=== PATIENT | male | born 1995 | race Caucasian/White ===

== ENCOUNTER 2024-11-04 07:46 | Outpatient (OUT) | payer OTHER, SELFPAY ==
--- NOTE | 2024-11-04 08:04 | ECG_ITS ---
[facility] Test Date: 2024-11-04 Pat Name: JESSICA FAGAN Department: Room: - Gender: Male Wound Care Technician: : 1995 Requested By: CHERYL VINCENT Order Number: [id number] Rajat MD: BETY STARKS M.D. Measurements Intervals Gage Rate: 72 P: 43 MI: 123 QRS: 34 QRSD: 89 T: 44 QT: 355 QTc: 388 Interpretive Statements SINUS RHYTHM Normal ECG No previous ECG available for comparison Electronically Signed On 11-04-2024 22:53:56 EDT by BETY STARKS M.D.
== END 2024-11-04 07:47 | disposition home or self-care (01) ==
PROVIDERS: PCP Family Medicine; Visit Provider Family Medicine
DX: R55 Syncope and collapse (principal)
CPT/HCPCS: 93005